=== PATIENT | female | born 1995 | race Caucasian/White ===

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

== ENCOUNTER 2019-04-21 17:14 | Emergency (ER) | payer MEDICAID, OTHER ==
[~2019-04-21] VITALS: Ht 157.5 cm; Wt 89.0 kg
[2019-04-21 17:17] VITALS: BP 141/64; PULSE 89; RESP 18; Ht 157.5 cm; Wt 89.0 kg
--- NOTE | 2019-04-21 19:04 | ERD ---
ER Documentation Chief Complaint Chief Complaint LMP March, TODAY BLEEDING X 3 DAYS HPI This is a 23-year-old female who presents to the ED complaining of pelvic pain and spotting. Patient states she started her menstrual cycle 3 days ago. She states she was moving her tampon today when she noticed "bright orange"color on her tampon which was unusual. She also reports some abdominal bloating and cramping however this is normal during her menses. She states she has an IUD in place. Denies any vaginal discharge. Denies urinary symptoms. Denies any fevers or chills. No other concerns. ROS All systems reviewed and are negative except as per history of present illness. Allergies Allergies: Coded Allergies: Penicillins (Verified Allergy, Unknown, 04/21/19) PMhx/Soc History of Surgery: No Anesthesia Reaction: No Hx Neurological Disorder: No Hx Respiratory Disorders: No Hx Cardiac Disorders: No Hx Psychiatric Problems: No Hx Alcohol Use: Yes (occasionally ) Hx Substance Use: Yes (marijuana ) Hx Tobacco Use: Yes Smoking Status: Former smoker Physical Exam Vitals Vital Signs Date Temp Pulse Resp B/P (MAP) Pulse Ox O2 O2 Flow FiO2 Time Delivery Rate 04/21/19 98.1 89 18 141/64 99 17:17 (89) Physical Exam Const: No acute distress Head: Atraumatic Eyes: Normal Conjunctiva ENT: Normal External Ears, Nose and Mouth. Neck: Full range of motion. No meningismus. Resp: Clear to auscultation bilaterally Cardio: Regular rate and rhythm, no murmurs Abd: Soft, + diffuse lower abdominal tenderness palpation, no rebound, no guarding. Negative McBurney's, negative Price's., non distended. Normal bowel sounds Skin: No petechiae or rashes Back: No midline or flank tenderness Ext: No cyanosis, or edema Neur: Awake and alert Psych: Normal Mood and Affect Results 24 hrs Laboratory Tests Test 04/21/19 17:50 04/21/19 17:53 Urine Color YELLOW Urine Clarity CLEAR Urine pH 6.0 Urine Specific [place] 1.018 Urine Ketones NEGATIVE mg/dL Urine Nitrite NEGATIVE mg/dL Urine Bilirubin NEGATIVE mg/dL Urine Urobilinogen NEGATIVE mg/dL Urine Leukocyte Esterase NEGATIVE Elvis/ul Urine Hemoglobin NEGATIVE mg/dL Urine Glucose NEGATIVE mg/dL Urine Total Protein NEGATIVE mg/dl POC Beta HCG, Qualitative NEGATIVE Procedures/MDM LABS & DIAGNOSTIC IMAGING: Urine: no e/o acute infection or hematuria uhcg: neg PROCEDURE: US Pelvis. CLINICAL INDICATION: Vaginal bleeding TECHNIQUE: Multiple sonographic images of the pelvis were obtained utilizing transabdominal technique. The images were reviewed on a PACS workstation. COMPARISON: None. FINDINGS: The uterus is normal in size with a normal appearance of the myometrium. The uterus measures 7.3 x 3.9 x 6.2 cm. The endometrial stripe is homogeneous in appearance and has the thickness of 4 mm. There is an IUD within the lower uterine segment. The right ovary was not seen. The left ovary measures 3.4 x 1.5 x 2.5 cm. There is normal Doppler flow. No free fluid is present within the pelvis. RPTAT: AA IMPRESSION: IUD within the lower uterine segment. Repositioning is recommended. Right ovary not visualized. MEDICAL DECISION MAKIN-year-old female presents with pelvic pain and vaginal bleeding. Her abdominal exam is benign, no evidence of peritonitis. Her vital signs are normal, no fever. Her UA is unremarkable. Pelvic ultrasound is unremarkable however does reveal a malpositioned IUD. I discussed with patient that this could likely be the source of her pelvic pain and spotting. I recommended follow-up with [facility] for correct position of her IUD. Strict return precautions were discussed. Low suspicion for PID, ruptured ovarian cyst, ovarian torsion, or any other emergent gynecological process. PRESCRIPTIONS: None SPECIALIST FOLLOW UP RECOMMENDED: None Patient has been advised to follow up with primary care in 1-2 days. Departure Diagnosis: Primary Impression: Malpositioned IUD Encounter type: initial encounter Qualified Codes: T83.32XA - Displacement of intrauterine contraceptive device, initial encounter Condition: Stable Patient Instructions: Control: IUD (Intrauterine Device) Referrals: [facility] [id number] [facility] [address] [place] [id number] OFFICE FAX PARAG [address] [place], [place] [id number] [place] [address] [place], [place] [id number] DR FEDLER [facility] [address] [facility], [address], [place] [address] KELLY [address]O [address] [facility], [place] [address] [facility] [address] [place] [address] [facility], [facility] [id number] - [facility] [address] [place] [address] [address] [place]ARRY, [place] [address] [facility] [address], [place] [address] DR [facility] [address] [place], [place] [id number] Additional Instructions: Follow-up with your general matcher for correct positioning of your IUD. This is likely the cause of your irregular bleeding. Your urine was clean for any infection. Return here for any new or worsening symptoms. MERCEDEZ LIN PA-C Apr 21, 2019 19:04
== END 2019-04-21 19:10 | disposition home or self-care (01) ==
LOC: FTE 17:14
DX: T83.32XA Displacement of intrauterine contraceptive device, initial encounter (principal); Y76.8 Miscellaneous obstetric and gynecological devices associated with adverse incidents, not elsewhere classified; Z87.891 Personal history of nicotine dependence
CPT/HCPCS: 76856; 81003; 81025; Z7502